=== PATIENT | female | born 1985 | race Caucasian/White ===

== ENCOUNTER 2023-04-24 14:46 | Emergency (ER) | payer OTHER ==
[2023-04-24 14:55] VITALS: BP 107/57; PULSE 55; RESP 18; TEMP 98.2; BMI 23.3
[2023-04-24 16:19] LABS: BASO % 0.9 % (0-2.0); EOS % 2.7 % (0-4.5); HEMATOCRIT 40.1 % (32.4-45.2); HEMOGLOBIN 13.5 GM/dL (10.7-15.3); MCH 29.5 pg (25.7-33.7); MCHC 33.7 g/dl (32.0-36.0); MEAN CELL VOLUME 87.5 fl (80-96); MEAN PLT VOLUME 9.8 fl (7.5-11.1); MONO % 9.1 % (3.8-10.2); NEUT % 52.3 % (42.8-82.8); PLATELET COUNT 220 10^3/uL (134-434); RBC 4.58 M/mm3 (3.60-5.2); RDW 14.4 % (11.6-15.6); WHITE BLOOD COUNT 7.3 K/mm3 (4.0-10.0)
[2023-04-24 16:31] LABS: POTASSIUM 4.3 mmol/L (3.5-5.1)
[2023-04-24 16:34] LABS: BLOOD UREA NITROGEN 14.6 mg/dL (7-18); CALCIUM 8.9 mg/dL (8.5-10.1)
[2023-04-24 16:36] LABS: CREATININE 0.9 mg/dL (0.55-1.3); URIC ACID 5.2 mg/dL (2.6-7.2)
[2023-04-24 16:37] LABS: PHOSPHOROUS 2.8 mg/dL (2.5-4.9)
[2023-04-24 16:38] LABS: TOT PROT 7.1 g/dl (6.4-8.2)
[2023-04-24 16:39] LABS: BILIRUBIN,TOTAL 0.3 mg/dL (0.2-1)
[2023-04-24 17:27] LABS: HIV INTERPRETATION NEGATIVE (NEGATIVE)
== END 2023-04-24 15:55 | disposition home or self-care (01) ==
LOC: JERFT 14:46
DX: Z77.21 Contact with and (suspected) exposure to potentially hazardous body fluids (principal)
CPT/HCPCS: 36415; 80053; 82465; 82977; 83615; 84100; 84478; 84550; 85025; 86704; 86803; 87340; 87389; 87517; 99283-25

== ENCOUNTER 2023-04-25 08:26 | Emergency (ER) | payer OTHER ==
[2023-04-25 08:45] VITALS: BP 132/84; PULSE 52; RESP 16; TEMP 97.6; BMI 24.2
[2023-04-25] MEDS ORDERED: IBUPROFEN 400 MG TABLET (FP) PO ONE ×3 (08:58→09:03)
[2023-04-25] MEDS ORDERED: DIPHTH,PERTUSS(ACELL),TET 0.5 ML DISP.SYRIN IM ONE ×3 (10:29→10:45)
== END 2023-04-25 11:14 | disposition home or self-care (01) ==
LOC: JERFT 08:26
PROC: 0HQFXZZ Repair Right Hand Skin, External Approach (ICD-10-PCS; principal; 2023-04-25)
PROC: 3E0234Z Introduction of Serum, Toxoid and Vaccine into Muscle, Percutaneous Approach (ICD-10-PCS; 2023-04-25)
DX: S62.633B Displaced fracture of distal phalanx of left middle finger, initial encounter for open fracture (principal); R22.32 Localized swelling, mass and lump, left upper limb; W23.1XXA Caught, crushed, jammed, or pinched between stationary objects, initial encounter
CPT/HCPCS: 73140-TC-RT-FY; 90715; 99283-25

== ENCOUNTER 2024-02-10 11:23 | Emergency (ER) | payer OTHER ==
[2024-02-10 11:32] VITALS: TEMP 98.2; BMI 22.6
[2024-02-10 11:56] LABS: BASO % 0.6 % (0-2.0); EOS % 1.2 % (0-4.5); HEMATOCRIT 40.6 % (32.4-45.2); HEMOGLOBIN 13.4 GM/dL (10.7-15.3); LYMPH % 29.2 % (8-40); MCH 29.8 pg (25.7-33.7); MCHC 33.1 g/dl (32.0-36.0); MEAN CELL VOLUME 89.9 fl (80-96); MEAN PLT VOLUME 8.9 fl (7.5-11.1); MONO % 7.7 % (3.8-10.2); NEUT % 61.3 % (42.8-82.8); PLATELET COUNT 264 10^3/uL (134-434); RBC 4.51 M/mm3 (3.60-5.2); RDW 15.3 % (11.6-15.6)
[2024-02-10 12:00] LABS: VENOUS O2 SATURATION 86.9 % (70-80); VENOUS PCO2 42.5 mmHg (38-52); VENOUS PH 7.359 (7.310-7.410)
[2024-02-10 12:03] LABS: INR 1.03 (0.83-1.09); PROTHROMBIN TIME (PATIENT) 11.6 SEC (9.7-13.0)
[2024-02-10 12:06] LABS: ACTIVATED PTT 26.8 SECONDS (25.2-36.5)
[2024-02-10 12:16] LABS: ALBUMIN 3.8 g/dl (3.4-5.0); BLOOD UREA NITROGEN 6.6 mg/dL (7-18); CALCIUM 9.1 mg/dL (8.5-10.1); MAGNESIUM 2.1 mg/dL (1.8-2.4)
[2024-02-10 12:21] LABS: BILIRUBIN,TOTAL 0.3 mg/dL (0.2-1); TOT PROT 7.4 g/dl (6.4-8.2)
[2024-02-10 12:26] LABS: LACTIC ACID 2.9 mmol/L (0.4-2.0)
[2024-02-10] MEDS: LACTATED RINGERS SOLUTION 1000 ML INFUS.BAG IV ONE (12:29)
[2024-02-10 14:25] LABS: EPI CELLS >36 /uL (0-25.1); HYALINE CASTS 1 /uL (0-3.1); METHADONE, UR NEGATIVE (NEGATIVE); OPIATES, URI NEGATIVE (NEGATIVE); PH,URINE 7.5 (5.0-8.0); PHENCYCLIDINE,URINE NEGATIVE (NEGATIVE); URINE APPEARANCE CLEAR; URINE BACTERIA 5983 /uL (0-1359); URINE BARBITURATES NEGATIVE (NEGATIVE); URINE BILIRUBIN NEGATIVE (NEGATIVE); URINE COLOR YELLOW; URINE GLUCOSE (UA) NEGATIVE (NEGATIVE); URINE KETONE NEGATIVE (NEGATIVE); URINE LEUK ESTERASE TRACE (NEGATIVE); URINE NITRITE NEGATIVE (NEGATIVE); URINE PROTEIN NEGATIVE (NEGATIVE); URINE RBC 18 /uL (0-23.9); URINE UROBILINOGEN 0.2 mg/dL (0.2-1.0); URINE WBC 33 /uL (0-25.8)
[2024-02-10 14:26] LABS: COCAINE, UR POSITIVE (NEGATIVE); URINE AMPHETAMINES POSITIVE (NEGATIVE); URINE BENZODIAZEPINES NEGATIVE (NEGATIVE)
[2024-02-10 15:04] VITALS: BP 149/96; PULSE 96; RESP 18
[2024-02-10] MEDS ORDERED: LIDOCAINE 1%/EPI 1:100000 (20 ML MULTI DOSE VIAL) ONE (15:36)
[2024-02-10] MEDS ORDERED: LIDOCAINE HCL 2% (20ML MULTI-DOSE VIAL) ONE (15:38)
[2024-02-10] MEDS: LIDO 2%/EPI 1:200000 PRESRVFRE (20 ML SDVIAL) INF ONE (15:47)
== END 2024-02-10 16:49 | disposition home or self-care (01) ==
LOC: JER 11:23
DX: S01.81XA Laceration without foreign body of other part of head, initial encounter (principal); R56.9 Unspecified convulsions; W07.XXXA Fall from chair, initial encounter
CPT/HCPCS: 36415; 70450-TC; 80053; 80307; 81003; 82803; 82962; 83605; 83735; 84703; 85025; 85610; 85730; 87077; 87086; 87186; 93005; 93010; 99285-25